=== PATIENT | male | born 1950 ===

== ENCOUNTER 2020-01-12 06:00 | Outpatient (RCR) | payer MEDICARE, OTHER, SELFPAY | END 2020-01-12 23:59 | disposition home or self-care (01) | LOC: MPS 06:00 | PROVIDERS: PCP Nurse Practitioner Family; Referring Provider Physical Medicine & Rehabilitation; Visit Provider Physical Medicine & Rehabilitation | DX: Z86.73 Personal history of transient ischemic attack (TIA), and cerebral infarction without residual deficits (principal) | CPT/HCPCS: 97110; 97161 ==

== ENCOUNTER 2020-01-13 06:00 | Outpatient (RCR) | payer MEDICARE, OTHER, SELFPAY | END 2020-02-11 23:59 | disposition home or self-care (01) | LOC: MPS 06:00 | PROVIDERS: PCP Nurse Practitioner Family; Referring Provider Physical Medicine & Rehabilitation; Visit Provider Physical Medicine & Rehabilitation | DX: Z86.73 Personal history of transient ischemic attack (TIA), and cerebral infarction without residual deficits (principal); R26.2 Difficulty in walking, not elsewhere classified; R42 Dizziness and giddiness | CPT/HCPCS: 92507; 92523; 97110; 97112; 97116; 97530 ==

== ENCOUNTER 2020-02-12 06:00 | Outpatient (RCR) | payer MEDICARE, OTHER, SELFPAY | END 2020-03-13 23:59 | disposition home or self-care (01) | LOC: MPS 06:00 | PROVIDERS: PCP Nurse Practitioner Family; Referring Provider Physical Medicine & Rehabilitation; Visit Provider Physical Medicine & Rehabilitation | DX: I69.315 Cognitive social or emotional deficit following cerebral infarction (principal) | CPT/HCPCS: 92507 ==